=== PATIENT | male | born 1935 ===

== ENCOUNTER 2019-07-28 09:34 | Observation (INO) | payer MEDICARE, OTHER ==
[2019-07-28 10:41] LABS: #Eosinphils 0.1 thou/uL (0.0-0.7); #Lymphocytes 2.1 thou/uL (1.20-3.40); #Monocytes 0.8 thou/uL (0.11-0.59); #Neutrophils 6.1 thou/uL (1.40-6.50); %Basophils 0.4 % (0.0-1.0); %Eosinophils 1.4 % (0.0-10.0); %Lymphocytes 23.1 % (21.0-51.0); %Monocytes 8.3 % (0.0-10.0); %Neutrophils 66.8 % (42.0-75.0); Hemoglobin 13.6 g/dL (14.0-18.0); Mean Corpuscular HGB CONC 31.7 g/dL (32.0-36.0); Mean Corpuscular Volume 91.4 fL (78.0-98.0); Mean Platelet Volume 6.6 fL (7.4-10.4); Platelet Count 324 thou/uL (130-400); RBC Distribution Width 11.9 % (11.5-14.5); Red Blood Cell (RBC) Count 4.69 mill/uL (4.70-6.10); White Blood Cell (WBC) Count 9.1 thou/uL (4.8-10.8)
--- NOTE | 2019-07-28 10:54 | CT ---
CT BRAIN: Date: 07/28/2019 PROVIDED CLINICAL HISTORY: Altered mental status. FINDINGS: No comparisons. The ventricular system is nondilated. There is no shift of the midline structures. Asymmetric appeara nce of the frontal horns of the lateral ventricle is likely on a congenital basis. No evidence for in tracranial hemorrhage or mass effect. Basilar cisterns appear patent. The extracranial soft tissues a nd osseous structures demonstrate no significant abnormality. IMPRESSION: No evidence for intracranial hemorrhage or mass effect. POS: DENISSE
[2019-07-28 11:10] LABS: ALT (SGPT) 89 U/L (8-55); AST (SGOT) 51 U/L (5-34); Albumin 3.9 g/dL (3.4-4.8); Alkaline Phosphatase 158 U/L (40-110); Anion Gap 13 mmol/L (10-20); BUN (Urea Nitrogen) 20 mg/dL (8.4-25.7); Bilirubin, Total 0.7 mg/dL (0.2-1.2); CK (CPK) 19 U/L (30-200); Calc. Creatinine Clearance 0 mL/min (70-130); Calcium 9.8 mg/dL (7.8-10.44); Carbon Dioxide 27 mmol/L (23-31); Chloride 101 mmol/L (98-107); Estimated GFR-MDRD Greater than 90; Globulin 3.8 g/dL (2.4-3.5); Glucose 144 mg/dL (83-110); Lipase 20 U/L (8-78); Potassium 4.2 mmol/L (3.5-5.1); Protein, Total 7.7 g/dL (5.8-8.1); Sodium 137 mmol/L (136-145)
--- NOTE | 2019-07-28 11:43 | RAD ---
EXAM: Single view of the chest HISTORY: Weakness and vomiting COMPARISON: None FINDINGS: Single view of the chest shows a normal sized cardiomediastinal silhouette. Diffuse increa sed interstitial markings are present. There is no evidence of consolidation, mass, or pleural effusion. The bones are unremarkable. IMPRESSION: No evidence of acute cardiopulmonary disease
--- NOTE | 2019-07-28 12:19 | CT ---
CTA Angio Chest W WO Con 07/28/2019 11:38 AM Indication: Weakness, diarrhea and fever; concern for Covid infection Technique: Multiple CTA images were obtained of the thorax with IV contrast. 3-D rendering: MIP marcellus nstructed images were created and reviewed. Comparison: No relevant prior studies available. Findings: Pulmonary arteries: No central or segmental pulmonary embolus is evident. Heart and Aorta: Heart size appears within normal limits. There are coronary artery and thoracic aor tic calcifications. Mediastinum:Normal appearing. No enlarged lymph nodes. Lungs:There is some mild pleural parenchymal scarring involving both lung apices. There is mild cade eptal emphysema involving both lungs but most prominent within the left upper lobe. Pleural space: Clear. Upper Abdomen: The gallbladder surgically absent. There is a 1.3 cm nodule within the lateral limb o f the left adrenal gland that is incompletely characterized. Osseous Structures: There is scattered degenerative and osteoarthritic change present. There is diff use osteopenia. There is a 1.1 cm sclerotic lesion involving the anterior inferior aspect of the T4 vertebral level just slightly spiculated margin is suspicious for a bone island. No additional focal lesion is evident. Soft tissues:No abnormality. Other findings:None. Impression: 1. No central or segmental pulmonary embolus. 2. Mild emphysema with mild pleural parenchymal scarring. No suspicious CT findings suggestive of Cov id respiratory infection. 3. 1.1 sclerotic lesion involving the anterior inferior aspect of the T4 vertebral level has a morpho logical appearance suggesting a bone island. The patient has any clinical history of malignancy, a bone scan may be helpful for further characterization. Otherwise a follow-up CT evaluation in one yea r is recommended to document stability. 4. Left adrenal nodule. Follow-up CT the abdomen utilizing adrenal mass protocol is recommended for a dditional characterization.
[2019-07-28 12:36] LABS: Bilirubin Negative (Negative); Blood, Urine Negative (Negative); Clarity Clear (Clear); Glucose, Urine (Dipstick) Normal (Negative); Leukocyte Negative Leu/uL (Negative); Nitrite Negative (Negative); Protein, Urine (Dipstick) Negative (Neg-Trace); Urobilinogen Normal mg/dL (Less than 2)
[2019-07-28] MEDS ORDERED: Iopamidol-370 76% 500 ML 1 ML ONE (12:55)
[2019-07-28] MEDS ORDERED: Acetaminophen 325 MG TAB PO PRN (13:51)
[2019-07-28] MEDS ORDERED: Ondansetron ODT 4 MG TAB PO PRN (13:51)
[2019-07-28] MEDS ORDERED: HYDROcodone/Acetaminophen 5/325 mg Tablet PO PRN ×2 (13:51)
[2019-07-28] MEDS ORDERED: Ondansetron PF 4 MG/2 ML Vial IVP PRN (13:51)
[2019-07-28] MEDS ORDERED: Acetaminophen 650 MG Suppository PR PRN (13:51)
--- NOTE | 2019-07-28 14:01 | PDOC.HHP ---
Hospitalist HPI - History of Present Illness diarrhea, generalise weakness History of Present Illness: Case of an 83y/o male with pmhx of hypercholesterolemia and bph who comes to hospital due to dirrhea and general malaise. patient refers he was on his usual state of health until 2 weeks ago while he was in [place] started with some diarrhea low grade fever and general malaise. he states he went to a click there where they tested for covid and negative and was sent home. patient continued with his symptoms and called his pcp who again repeated covid and again was negative. today patient continued with general malaise and generalise weakness, refers feeling he was going to pass out for which he decided to come to hospital for evaluation. patient denies cough sob dysuria vomiting hematochezia melena chest abd pain diaphoresis or palpitations, does refer some nausea and refers today his tongues was inflamed and red Hospitalist ROS - Review of Systems All other systems reviewed; all pertinent +/- noted in HPI/Subj Hospitalist History - Past Medical History Source: patient Cardiac: reports: Hyperlipidemia - Past Surgical History Past Surgical History: reports: Cholecystectomy, Cataract Removal - Family History Family History: reports: cancer (lung father), cardiac disorder - Social History Smoking Status: Former smoker Alcohol: reports: None Drugs: reports: none Living Situation: With Family Activity level: independent ambulation - Exam General Appearance: NAD, awake alert Eye: PERRL, anicteric sclera ENT: normocephalic atraumatic, no oropharyngeal lesions Neck: supple, symmetric, no JVD, no thyromegaly Heart: RRR, no murmur, no gallops, no rubs Respiratory: CTAB, no wheezes, no rales, no ronchi Gastrointestinal: soft, non-tender, non-distended, normal bowel sounds Extremities: no cyanosis, no clubbing, no edema Skin: normal turgor, no lesions, no rashes Neurological: cranial nerve grossly intact, normal sensation to touch Musculoskeletal: normal tone, normal strength, no muscle wasting Psychiatric: normal affect, normal behavior, A&O x 3 Hospitalist Results - Labs Result Diagrams: 07/28/19 10:29 07/28/19 10:29 Lab results: WBC 9.1 thou/uL (4.8-10.8) 07/28/19 10:29 Hgb 13.6 g/dL (14.0-18.0) L 07/28/19 10:29 Hct 42.9 % (42.0-52.0) 07/28/19 10:29 MCV 91.4 fL (78.0-98.0) 07/28/19 10:29 Plt Count 324 thou/uL (130-400) 07/28/19 10:29 Neutrophils % 66.8 % (42.0-75.0) 07/28/19 10:29 Sodium 137 mmol/L (136-145) 07/28/19 10:29 Potassium 4.2 mmol/L (3.5-5.1) 07/28/19 10:29 Chloride 101 mmol/L (98-107) 07/28/19 10:29 Carbon Dioxide 27 mmol/L (23-31) 07/28/19 10:29 BUN 20 mg/dL (8.4-25.7) 07/28/19 10:29 Creatinine 0.81 mg/dL (0.7-1.3) 07/28/19 10: Glucose 144 mg/dL (83-110) H 07/28/19 10:29 Calcium 9.8 mg/dL (7.8-10.44) 07/28/19 10:29 Total Bilirubin 0.7 mg/dL (0.2-1.2) 07/28/19 10:29 AST 51 U/L (5-34) H 07/28/19 10:29 ALT 89 U/L (8-55) H 07/28/19 10:29 Alkaline Phosphatase 158 U/L (40-110) H 07/28/19 10:29 Ammonia 22 umol/L (18-72) 07/28/19 10:29 Creatine Kinase 19 U/L (30-200) L 07/28/19 10:29 Troponin I Less than 0.010 ng/mL (< 0.028) 07/28/19 10:29 B-Natriuretic Peptide Less than 10.0 pg/mL (0-100) 07/28/19 10:29 Serum Total Protein 7.7 g/dL (5.8-8.1) 07/28/19 10:29 Albumin 3.9 g/dL (3.4-4.8) 07/28/19 10:29 Lipase 20 U/L (8-78) 07/28/19 10:29 Urine Ketones Negative mg/dL (Negative) 07/28/19 12:20 Urine Blood Negative (Negative) 07/28/19 12:20 Urine Nitrite Negative (Negative) 07/28/19 12:20 Ur Leukocyte Esterase Negative Jono/uL (Negative) 07/28/19 12:20 - Radiology Interpretation Chest x-ray Additional Comment: no effusions consolidations or infiltrates CT scan - head Additional Comment: no acute pathology CT scan - chest Additional Comment: no PE Hospitalist H&P A/P - Problem (1) Viral syndrome Status: Acute (2) Dehydration Code(s): E86.0 - DEHYDRATION Status: Acute (3) BPH (benign prostatic hyperplasia) Code(s): N40.0 - BENIGN PROSTATIC HYPERPLASIA WITHOUT LOWER URINRY TRACT SYMP Status: Acute (4) Hyperlipidemia Code(s): E78.5 - HYPERLIPIDEMIA, UNSPECIFIED Status: Acute - Plan Plan: 83y/o male presents with general weakness general malaise, 2 wks hx of diarrhea and low grade fevers. no leukocytosis u/a cxr clean - possible viral gastroenteritis, covid 19 x2 negative test - f/u stool cultures - iv hydration -admit as obs - tsh decreased f/u free t3 t4 - symptomatic tx for nausea - dvt prophylaxis
[2019-07-28 16:27] VITALS: BMI 23.3
[2019-07-28] MEDS: Sodium Chloride 0.9% 1,000 ML IV SCH (18:00)
[2019-07-29] MEDS: Sodium Chloride 0.9% 1,000 ML IV SCH ×2 (04:35→08:09)
[2019-07-29 04:38] LABS: #Basophils 0.1 thou/uL (0.0-0.2); #Eosinphils 0.2 thou/uL (0.0-0.7); #Lymphocytes 1.9 thou/uL (1.20-3.40); #Monocytes 0.7 thou/uL (0.11-0.59); #Neutrophils 3.7 thou/uL (1.40-6.50); %Basophils 1.4 % (0.0-1.0); %Eosinophils 2.8 % (0.0-10.0); %Monocytes 10.7 % (0.0-10.0); %Neutrophils 56.1 % (42.0-75.0); Hemoglobin 12.2 g/dL (14.0-18.0); Mean Corpuscular HGB CONC 34.1 g/dL (32.0-36.0); Mean Corpuscular Hemoglobin 31.3 pg (27.0-31.0); Mean Corpuscular Volume 91.9 fL (78.0-98.0); Mean Platelet Volume 6.5 fL (7.4-10.4); Platelet Count 257 thou/uL (130-400); RBC Distribution Width 11.8 % (11.5-14.5); Red Blood Cell (RBC) Count 3.88 mill/uL (4.70-6.10); White Blood Cell (WBC) Count 6.5 thou/uL (4.8-10.8)
[2019-07-29 04:53] LABS: ALT (SGPT) 73 U/L (8-55); AST (SGOT) 41 U/L (5-34); Albumin 3.3 g/dL (3.4-4.8); Alkaline Phosphatase 132 U/L (40-110); Anion Gap 13 mmol/L (10-20); BUN (Urea Nitrogen) 16 mg/dL (8.4-25.7); Bilirubin, Total 0.5 mg/dL (0.2-1.2); Calc. Creatinine Clearance 87 mL/min (70-130); Calcium 8.8 mg/dL (7.8-10.44); Carbon Dioxide 26 mmol/L (23-31); Chloride 103 mmol/L (98-107); Estimated GFR-MDRD Greater than 90; Globulin 3.1 g/dL (2.4-3.5); Glucose 125 mg/dL (83-110); Protein, Total 6.4 g/dL (5.8-8.1); Sodium 138 mmol/L (136-145)
[2019-07-29 05:34] LABS: Free T4 (Free Thyroxine) 2.83 ng/dL (0.70-1.48)
[2019-07-29] MEDS ORDERED: Enoxaparin Sodium 40 MG/0.4 ML SYRINGE SC SCH (09:00)
[2019-07-29 11:11] VITALS: BP 140/67; TEMP 97.6
--- NOTE | 2019-07-29 15:19 | EKG ---
Test Reason : Blood Pressure : / mmHG Vent. Rate : 089 BPM Atrial Rate : 089 BPM P-R Int : 160 ms QRS Dur : 088 ms QT Int : 362 ms P-R-T Axes : 079 009 077 degrees QTc Int : 440 ms Normal sinus rhythm Possible Left atrial enlargement Septal infarct , age undetermined Abnormal ECG Confirmed by KYLIE HILL, JOHANNE ([id number]), senior editor CAROLINA MILLER ([id number]) on 07/29/2019 3:19:00 PM Referred By: Confirmed By:JOHANNE ESPINAL MD
[2019-07-29] MEDS ORDERED: Atorvastatin Calcium 20 MG TAB PO SCH (21:00)
[2019-07-29] MEDS ORDERED: Tamsulosin HCl 0.4 MG CAP PO SCH (21:00)
--- NOTE | 2019-07-29 23:33 | DIS ---
DATE OF ADMISSION: 07/28/2019 DATE OF DISCHARGE: 07/29/2019 DISCHARGE DISPOSITION: The patient will be discharged home in stable condition. He will follow up with PCP. CLINICAL COURSE: Case of an 83-year-old male with past medical history of hypercholesterolemia and BPH, who came to the hospital due to diarrhea and general malaise. The patient was evaluated, cultures were taken, and everything came back negative. TSH was sent and came below normal expected values. T3 and T4 were also sent and were evaluated. The patient was diagnosed with hyperthyroidism. Currently, there is no tablet making machine operator at the hospital. I explained to the patient that he will need to have iodine uptake test for the diagnosis of hyperthyroidism before starting medications. He referred he would like to do this as an outpatient with tablet making machine operator on board. The patient currently apart from generalized weakness and diarrhea. He has stable vital signs and stable labs. The patient was oriented about his condition, treatment and followup plan, refers to agree and understand and wishes to be discharged home. FINAL DIAGNOSES: Hyperthyroidism, dehydration and benign prostatic hypertrophy. DISCHARGE MEDICATIONS: Tamsulosin 0.5 mg and simvastatin 40 mg p.o. daily. DISCHARGE INSTRUCTIONS: The patient will follow up with PCP and will either see an tablet making machine operator or get a referral of an tablet making machine operator for the evaluation of hyperthyroidism. TIME SPENT: Time spent on discharge less than 30 minutes. Job ID: [id number]
== END 2019-07-29 13:01 | disposition home or self-care (01) ==
LOC: ERS 09:34 → ERHOLD 13:33 → 2NO 16:11
PROVIDERS: ADMIT Internal Medicine; ATTEND Internal Medicine
DX: E05.90 Thyrotoxicosis, unspecified without thyrotoxic crisis or storm (principal); N40.0 Benign prostatic hyperplasia without lower urinary tract symptoms; E86.0 Dehydration; R19.7 Diarrhea, unspecified; E78.5 Hyperlipidemia, unspecified; Z79.899 Other long term (current) drug therapy; Z87.891 Personal history of nicotine dependence
CPT/HCPCS: 36415; 70450; 71045; 71275; 80053; 81003; 82140; 82550; 83630; 83690; 83880; 84439; 84443; 84481; 84484; 85025; 85379; 87045; 87046; 87324; 87427; 87449; 93005; 96360; 96361; 96372; G0378; J1650; Q9967